=== PATIENT | female | born 1995 | race American Indian/Alaskan Native ===

== ENCOUNTER 2019-12-25 12:55 | Outpatient (CLI) | payer MEDICAID ==
[2019-12-25 13:27] VITALS: BP 113/71
[2019-12-25] MEDS ORDERED: LACTATED RINGERS 500 ML IV ONE (13:36)
[2019-12-25] MEDS ORDERED: LACTATED RINGERS 1,000 ML IV SCH (14:00)
[2019-12-25 14:15] LABS: Bacteria,Urine 1+ /HPF (Negative); Bilirubin,Urine NEG (Negative); Blood,Urine NEG (Negative); Color,Urine Yellow (Yellow); Protein,Urine <15 mg/dL mg/dL (Negative); Urobilinogen,Urine < 2.0 mg/dL (<2.0)
--- NOTE | 2019-12-25 17:00 | Ultrasound Report ---
LIMITED OB PELVIC ULTRASOUND INDICATION / CLINICAL INFORMATION: Vaginal spotting. Placenta scan only. COMPARISON: None available. FINDINGS: The heart rate is 131 bpm. The cervix measures 4.7 cm in length and the internal os is closed. The placenta is located anteriorly, is grade 2 and is free of the os. There is no evidence of abrupti on. Amniotic fluid volume is normal. presentation is cephalic. IMPRESSION: No evidence of placenta previa or placental abruption. Signer Name: Zeus Whitney MD Signed: 12/25/2019 4:55 PM Workstation Name: [id number]
== END 2019-12-25 17:13 | disposition home or self-care (01) ==
LOC: TRG 12:55
PROVIDERS: ATTEND Obstetrics & Gynecology
DX: O26.852 Spotting complicating pregnancy, second trimester (principal); O26.892 Other specified pregnancy related conditions, second trimester; R10.9 Unspecified abdominal pain; O47.02 False labor before 37 completed weeks of gestation, second trimester; Z3A.24 24 weeks gestation of pregnancy
CPT/HCPCS: 36415; 76815; 81001; 82731; J7120; 96360

== ENCOUNTER 2022-05-20 09:40 | Inpatient (IN) | payer MEDICAID ==
--- NOTE | 2022-05-20 09:15 | History and Physical Report ---
History of Present Illness Date of examination: 05/16/22 Date of admission: 05/20/2022 Chief complaint: here for c/s History of present illness: Pt here for repeat c/s. All risk, benefits and alternatives were d/w pt and questions were addressed and answered. Consents signed and placed on the chart. EDC Confirmation: 05/23/2022 Gestational Age: 39 4/7 weeks Past History : 5 Term Births: 1 Premature Births: 0 Living Children: 1 Para: 1 Mult. Births: 0 Prev : 1 Aborta: 3 Elect. Ab: 2 Spont. Ab: 1 Ectopics: 0 # 1 Delivery date: 2017 Delivery type: EAB # 2 Delivery date: 2019 Weeks Gestation: 41 Delivery type: Infant Sex: Male weight: 7lbs 4oz Comments: c/s d/t no dilatation, only 1cm. Denies PPH/PPD # 3 Delivery date: 10/2020 Delivery type: EAB # 4 Delivery date: 05/2021 Weeks Gestation: 9 Delivery type: SAB Comments: D&C Past Medical History: Reviewed and updated today: Negative Past Medical History Past Surgical History: Reviewed and updated today: General Comments - FH: mother Social History: Patient is single Smoking History: Patient has never smoked. Risk Factors: Smoked Tobacco Use: Never smoker Smokeless Tobacco Use: Never HIV High Risk Behavior: low risk No Dietary Counseling Reason: pn yes Alcohol Use: no Drug Use: no Past Medical History Anesthesia Complications: negative Anemia: negative Autoimmune Disorder: negative Bleeding Disorder: negative Blood Transfusions: negative Breast Disease: negative Diabetes: negative Heart Disease: negative Hypertension: negative Hepatitis/Liver Disease: negative Kidney Disease/UTI: negative Neurologic/Epilepsy/Migraines: negative Phlebitis/Varicosities: negative Psychiatric: negative Pulmonary Disease/Asthma: negative Thyroid Disease: negative Hospitalizations: negative 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 Infection History Hx of STD: none HIV Risk Eval: low risk Hepatitis B Risk Eval: low risk Personal hx. of genital herpes: no Partner hx. of genital herpes: no Rash, Viral, or Febrile illness since last LMP? no Genetic History Congenital Heart Defect: Mom: no Dad: no Jerrell Disease: Mom: no Dad: no Thalassemia Mom: no Dad: no Neural Tube Defect Mom: no Dad: no Down's Syndrome Mom: no Dad: no Cristóbal-Sachs Mom: no Dad: no Sickle Cell Disease/Trait Mom: no Dad: no Hemophilia Mom: no Dad: no Muscular Dystrophy Mom: no Dad: no Cystic Fibrosis Mom: no Dad: no [place] Chorea Mom: no Dad: no Mental Retardation Mom: no Dad: no Fragile X Mom: no Dad: no Other Genetic/Chromosomal Disorder Mom: no Dad: no Child w/other defect Mom: no Dad: no Enviromental Exposures Xray Exposure: no Medication, drug, or alcohol use since LMP: no Chemical/Other Exposure: no Exposure to Cat Liter: no Hx of Parvovirus (Fifth Disease): no Occupational Exposure to Children: none Active Medications (reviewed today): None Current Allergies (reviewed today): No known allergies Past History Past Medical History: other (see hpi) Past Surgical History: other (see hpi) Family/Genetic History: other (see hpi) Social history: other (see hpi) - Obstetrical History Expected Date of Delivery: 05/23/22 Actual Gestation: 39 Week(s) 4 Day(s) : 2 Para: 1 Number of Living Children: 1 Medications and Allergies Allergies Allergy/AdvReac Type Severity Reaction Status Date / Time shellfish derived Allergy Severe Hives Verified 04/19/20 17:30 Home Medications Medication Instructions Recorded Confirmed Last Taken Type Docusate Sodium [Colace] 100 mg PO BID PRN #60 capsule 04/22/20 Unknown Rx Ferrous Sulfate [Feosol 325 MG tab] 325 mg PO BID #60 tablet 04/22/20 Unknown Rx Ibuprofen [Motrin] 800 mg PO Q8HR PRN #40 tablet 04/22/20 Unknown Rx oxyCODONE /ACETAMINOPHEN [Percocet 2 tab PO Q6HR PRN #40 tablet 04/22/20 Unknown Rx 5/325] Review of Systems All systems: negative - Physical Exam Cardiovascular: Normal S1, Normal S2 Lungs: Positive: Clear to auscultation, Normal air movement Abdomen: Positive: normal appearance, soft Genitourinary (Female): Positive: other (deferred until EUA) Results Result Diagrams: 05/20/22 10:50 HBsAg Screen Negative Negative *1 RPR Non Reactive Non Reactive *2 Rubella Antibodies, IgG 1.59 index Immune >0.99 *3 Non-immune <0.90 Equivocal 0.90 - 0.99 Immune >0.99 ABO Grouping O *4 Rh Factor Positive *5 Please note: Prior records for this patient's ABO / Rh type are not available for additional verification. Antibody Screen Negative Negative *6 WBC [H] 11.3 x10E3/uL 3.4-10.8 *7 RBC 3.93 x10E6/uL 3.77-5.28 *8 Hemoglobin 12.4 g/dL 11.1-15.9 *9 Hematocrit 36.5 % 34.0-46.6 *10 MCV 93 fL 79-97 *11 MCH 31.6 pg 26.6-33.0 *12 MCHC 34.0 g/dL 31.5-35.7 *13 RDW 12.9 % 11.7-15.4 *14 Platelets 279 x10E3/uL 150-450 *15 Neutrophils 74 % Not Estab. *16 Lymphs 17 % Not Estab. *17 Monocytes 6 % Not Estab. *18 Eos 3 % Not Estab. *19 Basos 0 % Not Estab. *20 ! Immature Cells <No Reported Value> *21 Neutrophils (Absolute) [H] 8.3 x10E3/uL 1.4-7.0 *22 Lymphs (Absolute) 2.0 x10E3/uL 0.7-3.1 *23 Monocytes(Absolute) 0.6 x10E3/uL 0.1-0.9 *24 Eos (Absolute) 0.3 x10E3/uL 0.0-0.4 *25 Baso (Absolute) 0.0 x10E3/uL 0.0-0.2 *26 ! Immature Granulocytes 0 % Not Estab. *27 ! Immature Grans (Abs) 0.0 x10E3/uL 0.0-0.1 *28 ! NRBC <No Reported Value> *29 Hematology Comments: <No Reported Value> *30 Tests: (2) AFP Tetra ([id number]) ! Results Report *31 ! Test Results: *Screen Negative* *32 ! Gest. Age on Collection Date 20.6 WEEKS *33 ! Gestat. Age Based On LLUVIA *34 05/23/2022 ! M[age] LLUVIA [age] yr *35 ! Race Black *36 ! Weight 176 lbs *37 ! Insulin Dep Diabetes No *38 ! Multiple Gestation No *39 ! AFP Value 44.9 ng/mL *40 ! AFP MoM 0.73 *41 ! hCG Value 63143 mIU/mL *42 ! hCG MoM 0.47 *43 ! uE3 Value 2.81 ng/mL *44 ! uE3 MoM 1.14 *45 ! ANNA Value 110.52 pg/mL *46 ! ANNA MoM 0.61 *47 ! OSBR Risk 1 [place] [address] *48 ! DSR (Second Trimester) 1 [place] [address] *49 ! DSR (By Age) 1 IN 1003 *50 ! T18 Risk Not increased *51 ! T18 (By Age) 1:3907 *52 ! Interpretation NL42 *53 Interpretation: Screen Negative This result is screen negative for OSB, Down Syndrome and Trisomy 18. The AFP MoM and patient specific risks calculated are based on the gestational age and the clinical information provided. This test can identify up to 80% of open neural tube defects. Closed neural tube defects and some open defects may not be detected by this test. The combination of maternal age, AFP, hCG, uE3, and ANNA identifies 75-80% of Down Syndrome. The combination of maternal age, AFP, hCG and uE3 identifies 60% of Trisomy 18 pregnancies. The [employer] recommends amniocentesis be offered to women age 35 and older. Recalculations are not recommended when gestational dating by LMP and ultrasound are within 10 days. ! Comments: [facility] *54 Jazzy Gonsales, Ph.D., [facility] Director References: Available Upon Request. Multiples Of Median Cutoffs Abbreviation Definitions For AFP Elevations IDD- Insulin Dep Diabetes Guerrero 2.5 Black 2.8 OSBR- Open Spina Bifida IDD 2.0 Twins 4.5 Risk DSR Cutoff 1:270 DSR- Down Syndrome Risk T18 Cutoff 1:100 T18- Trisomy 18 Down Syndrome and Trisomy 18 screening are considered Investigational For further inquiries contact [facility] at [phone]. Tests: (3) HB Solu + Rflx [facility] ([id number]) Hemoglobin (Hgb) Solubility Negative Negative *55 Tests: (4) HIV Ab/p24 Ag with Reflex ([id number]) HIV Ab/p24 Ag Screen Non Reactive Non Reactive *56 HIV Negative HIV-1/HIV-2 antibodies and HIV-1 p24 antigen were NOT detected. There is no laboratory evidence of HIV infection. Tests: (5) HCV Antibody reflex to ZAKIYA ([id number]) HCV Ab <0.1 s/co ratio 0.0-0.9 *57 Tests: (6) Interpretation: ([id number]) ! Interpretation: SPRCS *58 Negative Not infected with HCV, unless recent infection is suspected or other evidence exists to indicate HCV infection. Effective February 18, 2022 HCV Antibody reflex to ZAKIYA will be made non-orderable. This will affect any Custom Profile that includes [id number] HCV Antibody reflex to ZAKIYA. [facility] offers order code [id number] HCV Antibody RFX to Quant PCR as an alternative. Tests: (7) Urine Culture, Routine ([id number]) Urine Culture, Routine Final report *59 Tests: (8) Result ([id number]) ! Result 1 No growth *60 Performed At: , [facility] ! Strep Gp B ZAKIYA Negative Negative *1 Centers for Disease Control and Prevention (CDC) and [place] [employer]nec[employer] (ACOG) guidelines for prevention of group B streptococcal (GBS) disease specify co-collection of a vaginal and rectal swab specimen to maximize sensitivity of GBS detection. Per the CDC and ACOG, swabbing both the lower vagina and rectum substantially increases the yield of detection compared with sampling the vagina alone. Penicillin G, ampicillin, or cefazolin are indicated for intrapartum prophylaxis of GBS colonization. Reflex susceptibility testing should be performed prior to use of clindamycin only on GBS isolates from penicillin-allergic women who are considered a high risk for anaphylaxis. Treatment with vancomycin without additional testing is warranted if resistance to clindamycin is noted. Assessment and Plan - Patient Problems (1) Previous delivery affecting Current Visit: No Status: Acute Plan to address problem: -admit and prepare for c/s
[2022-05-20] MEDS ORDERED: ceFAZolin/Water 2 GM/20 ML 2 GM/20 ML SYRINGE IV NR (10:00)
[2022-05-20] MEDS ORDERED: FAMOTIDINE 20 MG/2 ML INJ IV SCH (10:30)
[2022-05-20] MEDS ORDERED: OXYTOCIN DRIP 30 UNITS/500 ML BAG IV SCH (10:30)
[2022-05-20] MEDS ORDERED: METOCLOPRAMIDE 10 MG/2 ML INJ IV SCH (10:30)
[2022-05-20] MEDS ORDERED: BICITRA ORAL LIQD 30ML PO SCH (10:30)
[2022-05-20] MEDS ORDERED: AZITHROMYCIN/NS 500 MG/250 ML 500 MG/250 ML BAG IV SCH (11:00)
[2022-05-20] MEDS ORDERED: ePHEDrine SULFATE 50 MG/1 ML INJ ONE (11:18)
[2022-05-20] MEDS ORDERED: PHENYLEPHRINE/NS 1,000 MCG/10 ML SYRINGE (OR USE) IV ONE (11:18)
[2022-05-20] MEDS ORDERED: BUPIVACAINE/PF (0.25%) 2.5 MG/ML 30 ML VIAL INFILTRATI ONE (11:18)
[2022-05-20] MEDS ORDERED: ONDANSETRON 4 MG/2 ML INJ ONE (11:18)
[2022-05-20 11:20] LABS: Basophils % (Auto) 0.2 % (0.0-1.8); Eosinophils # (Auto) 0.2 K/mm3 (0.0-0.4); Eosinophils % (Auto) 1.5 % (0.0-4.3); Hematocrit 32.5 % (30.3-42.9); Hemoglobin 11.9 gm/dl (10.1-14.3); Lymphocytes % (Auto) 18.5 % (13.4-35.0); Mean Corpuscular HGB Conc 37 % (30-34); Mean Corpuscular Volume 91 fl (79-97); Monocytes # (Auto) 0.8 K/mm3 (0.0-0.8); Monocytes % (Auto) 7.3 % (0.0-7.3); Platelet Count 207 K/mm3 (140-440); Red Blood Count 3.57 M/mm3 (3.65-5.03); Red Cell Distribution Width 13.2 % (13.2-15.2)
[2022-05-20] MEDS: LACTATED RINGERS 1,000 ML IV SCH ×2 (12:01→12:03)
[2022-05-20] MEDS ORDERED: OXYTOCIN 10 UNIT/1 ML INJ ONE (12:55)
--- NOTE | 2022-05-20 13:27 | Operative Report ---
Operative Report Operative Report: Date of procedure: 05/20/2022 Pre-operative diagnosis: 39-4/7 weeks gestation Previous section Post-operative diagnosis: Same Procedure name(s): Repeat low transverse section via Pfannenstiel skin incision Surgeon: Dr. Lyons Paraprofessional Education Assistant: SARAH Anesthesia: Spinal EBL:400ml QBL: 450 mL Urine output: 200 mL of clear urine out at end of the procedure Fluids: 1500 mL Findings: Liveborn male weight 8 pounds 4 ounces Apgars of 9 and 9 at 1 and 5 minutes Body cord x1 easily reduced Adhesions at the level of the skin Grossly normal fallopian tubes and ovaries bilaterally Indications: Patient presents for elective repeat section. All risk benefits and alternatives were discussed with the patient. Consents were signed and placed on the chart. Procedure: Patient was taking to the operating room. Patient was then prepped and draped in sterile fashion after anesthesia was found to be adequate. A low transverse skin incision was made with the scalpel through previous incisional scar and carried down to the underlying layer of fascia with the Bovie. The fascia was then incised in the midline and this incision was extended bilaterally with the Bovie. The superior aspect of the fascia was grasped with Kimmy clamps tented upward and dissected off of the anterior rectus muscles with the scalpel. In similar fashion the inferior aspect of the fascia was grasped with Kimmy clamps tented upward and dissected off of the anterior rectus muscles. The rectus muscles were then bluntly divided in the midline. The peritoneum was identified and entered into sharply. The Cordell retractor was placed. A lower transverse uterine incision was made with the scalpel and extended bilaterally with the bandage scissors. Artificial rupture of membranes was performed yielding [clear amniotic fluid]. The infant's head was then delivered atraumatically. The anterior shoulder and rest of delivered without difficulty. Body cord x1 easily reduced. The umbilical cord was clamped x2. The cord was cut. The was then placed in sterile bassinet. [The cord blood was collected]. The placenta was manually extracted in its entirety. The uterus was exteriorized and cleared of all clots and debris. The uterine incision was closed using 0 Vicryl in a running locking fashion. [ A second imbricating layer of the same suture was then created.] The posterior cul-de-sac was copiously irrigated. The uterus was returned to the abdomen. The gutters were also irrigated. The anterior rectus muscles were reapproximated using 3-0 Vicryl. The anterior rectus fascia was reapproximated using 0 Vicryl in a running fashion. The subcuticular fat was reapproximated using 2-0 Vicryl in a running fashion. The skin was reapproximated with 4-0 Monocryl in a subcuticular stitch. The patient tolerated the procedure well. Sponge lap and needle counts were all correct x3. Patient was taken to the recovery room awake and in stable condition.
[2022-05-20] MEDS ORDERED: KETOROLAC 30 MG/1 ML INJ IV PRN (13:30)
[2022-05-20] MEDS ORDERED: SIMETHICONE 80 MG CHEW TAB PO PRN (13:30)
[2022-05-20] MEDS ORDERED: NALOXONE 0.4 MG/1 ML INJ IV PRN ×2 (13:30→13:52)
[2022-05-20] MEDS ORDERED: IBUPROFEN 600 MG TAB PO PRN (13:30)
[2022-05-20] MEDS ORDERED: LANOLIN/ZINC/DIMETHICONE (LANSINOH) 7 GM TP PRN (13:30)
[2022-05-20] MEDS ORDERED: ACETAMINOPHEN 650 MG RECT SUPP PR PRN (13:30)
[2022-05-20] MEDS ORDERED: MORPHINE 4 MG/1 ML INJ IV PRN ×2 (13:30→13:52)
[2022-05-20] MEDS ORDERED: WITCH HAZEL/ GLYCERIN PAD TP PRN (13:30)
[2022-05-20] MEDS ORDERED: HYDROmorphone 0.5 MG/0.5 ML INJ IV PRN (13:52)
[2022-05-20] MEDS ORDERED: ONDANSETRON 4 MG/2 ML INJ IV PRN (13:52)
[2022-05-20] MEDS ORDERED: PROMETHAZINE 25 MG TAB PO PRN (13:52)
[2022-05-20] MEDS ORDERED: PROMETHAZINE 25 MG RECT SUPP PR PRN (13:52)
[2022-05-20] MEDS ORDERED: HYDROmorphone 1 MG/1 ML INJ IV PRN ×2 (13:52)
--- NOTE | 2022-05-20 13:54 | Anesthesia Consultation ---
Anesthesia Consult and Med Hx Date of service: 05/20/22 - Airway Anesthetic Teeth Evaluation: Good ROM Head & Neck: Adequate Mental/Hyoid Distance: Adequate Mallampati Class: Class II Intubation Access Assessment: Probably Good - Pulmonary Exam CTA: Yes - Cardiac Exam Cardiac Exam: RRR - Pre-Operative Health Status ASA Pre-Surgery Classification: ASA2 Proposed Anesthetic Plan: Spinal Nerve Block: Stanford Tap - Pulmonary Hx Smoking: No Hx Asthma: No Hx Respiratory Symptoms: No SOB: No COPD: No Home Oxygen Therapy: No Hx Pneumonia: No Hx Sleep Apnea: No - Cardiovascular System Hx Hypertension: No Hx Coronary Artery Disease: No Hx Heart Attack/AMI: No Hx Angina: No Hx Percutaneous Transluminal Coronary Angioplasty (PTCA): No Hx Cardia Arrhythmia: No Hx Pacemaker: No Hx Internal Defibrillator: No Hx Valvular Heart Disease: No Hx Heart Murmur: No Hx Peripheral Vascular Disease: No - Central Nervous System Hx Neuromuscular Disorder: No Hx Seizures: No CVA: No Hx Back Pain: No Hx Psychiatric Problems: No - Gastrointestinal Hx Ulcer: No Hx Gastroesophageal Reflux Disease: No - Endocrine Hx Renal Disease: No Hx End Stage Renal Disease: No Hx Cirrhosis: No Hx Liver Disease: No Hx Insulin Dependent Diabetes: No Hx Non-Insulin Dependent Diabetes: No Hx Thyroid Disease: No Hx Hypothyroidism: No Hx Hyperthyroidism: No - Hematic Hx Anemia: No Hx Sickle Cell Disease: No - Other Systems Hx Alcohol Use: No Hx Substance Use: No Hx Cancer: No Hx Obesity: No
--- NOTE | 2022-05-20 13:54 | Anesthesia Day of Surgery ---
Anesthesia Day of Surgery - Day of Surgery Patient Examined: Yes Patient H&P Reviewed: Yes Patient is NPO: Yes Beta Blockers: No Cardiac Clearance: No Pulmonary Clearance: No Simon's Test: N/A
--- NOTE | 2022-05-20 13:55 | Progress Note ---
Spinal Anesthesia Block - Spinal Anesthesia Block Start Time: 12:15 Stop Time: 12:24 Performed by:: LAW ANDREWS Procedure: The patient was placed in a sitting position on the OR table and monitors applied. A timeout was performed immediately prior to the start of the procedure. The patient was Prepped and draped in a sterile fashion and the skin was localized with 3 mL 1% lidocaine at L[4]-L[5] interspace. An introducer was placed into the back between L4-L5 and a 25g spinal needle was advanced into the intrathecal space until clear, free flowing CSF was observed. 1.8cc of 0.75% hyperbaric bupivacaine + 0.5mcg Precedex was injected into the intrathecal space and the spinal needle was removed. The patient tolerated the procedure well and there were no immediate complications noted.
--- NOTE | 2022-05-20 13:55 | Progress Note ---
Regional Anesthesia Block - Regional Anesthesia Block Start Time: 13:35 Stop Time: 13:41 Performed By:: LAW ANDREWS Procedure: During the pre-op interview the patient agreed to and signed a consent for a TAP block for post surgical pain management. After her C/S was completed a time out was performed prior to the start of the procedure. The Trans Abdominal Plane was identified bilaterally via ultrasound. The skin was prepped bilaterally with chlorhexidine and a 22g stimuplex needle was advanced to the area between the internal oblique muscle and the trans abdominal plane. Marcaine 0.25% 30mlwas injected under ultrasound guidance on the left and right side. Negative aspiration every 5mL, There was no change in the patients heart rate or rhythm and the patient tolerated the procedure well. No apparent complications were observed.
[2022-05-20] MEDS ORDERED: ceFAZolin/NS 1 GM/50 ML 1 GM/50 ML BAG IV SCH (14:00)
[2022-05-20] MEDS ORDERED: fentaNYL-BUPIV 2 MCG/ML-0.125% 200 MCG/100 ML BAG EPIDURAL SCH (14:00)
[2022-05-20] MEDS ORDERED: LACTATED RINGERS 1,000 ML IV SCH (18:00)
[2022-05-21] MEDS: HYDROcodone/ACETAMINOPHEN 5-325 MG TAB PO PRN ×2 (00:09→05:36)
[2022-05-21] MEDS ORDERED: ceFAZolin/NS 1 GM/50 ML 1 GM/50 ML BAG IV SCH (02:00)
[2022-05-21 02:53] LABS: Hematocrit 30.6 % (30.3-42.9); Hemoglobin 10.9 gm/dl (10.1-14.3)
--- NOTE | 2022-05-21 08:33 | Progress Note ---
Assessment and Plan patient doing well, no complaints. H&H 10.9/30.6. VSSAF, lochia scant, fundus firm. + Flatus - Patient Problems (1) delivery delivered Current Visit: Yes Status: Acute Plan to address problem: Continue postop pathway Anticipate c/s home tomorrow Subjective - Subjective Date of service: 05/21/22 Principal diagnosis: postop day #1 s/p repeat c/s Patient reports: appetite normal, voiding normally, pain well controlled, ambulating normally, no dizzy ambulation, no nauseated : doing well Objective - Vital Signs Latest vital signs: Vital Signs Temp Pulse Resp BP BP Pulse Ox Pulse Ox 05/21/22 05:36 20 05/21/22 05:06 97.4 F L 63 18 102/64 97 05/21/22 01:42 97.9 F 65 18 96/56 96 05/21/22 00:09 20 05/20/22 21:55 97.7 F 61 18 101/63 96 05/20/22 19:50 99 05/20/22 15:33 103 H 98 05/20/22 15:28 105 H 97 05/20/22 15:26 99 H 114/68 05/20/22 15:23 100 H 98 05/20/22 15:21 97.8 F 63 16 111/79 100 05/20/22 15:20 100 05/20/22 15:18 86 99 05/20/22 15:13 107 H 99 05/20/22 15:12 98 H 117/68 05/20/22 15:08 96 H 98 05/20/22 15:03 103 H 98 05/20/22 15:00 97.4 F L 71 17 108/71 97 05/20/22 14:58 108 H 99 05/20/22 14:56 102 H 121/64 05/20/22 14:53 100 H 99 05/20/22 14:48 98 H 100 05/20/22 14:45 65 17 113/75 98 05/20/22 14:30 97.1 F L 74 16 115/72 99 05/20/22 14:15 64 16 111/74 99 05/20/22 14:00 96.9 F L 64 14 107/69 98 05/20/22 13:55 64 14 109/70 98 05/20/22 13:50 64 16 111/71 98 05/20/22 13:45 72 114/73 97 05/20/22 13:40 68 15 107/67 95 05/20/22 13:35 69 15 108/67 95 05/20/22 13:30 96.0 F L 73 11 L 105/65 98 05/20/22 13:29 12 108/74 94 05/20/22 12:06 81 96 05/20/22 12:03 82 94 05/20/22 12:01 80 92 05/20/22 11:56 82 93 05/20/22 11:51 92 H 94 05/20/22 11:50 96 H 93 05/20/22 11:46 80 96 05/20/22 11:44 85 93 05/20/22 11:41 93 H 95 05/20/22 11:36 82 95 05/20/22 11:31 78 94 05/20/22 11:07 77 97 05/20/22 11:02 77 97 05/20/22 10:57 74 96 05/20/22 10:52 78 97 05/20/22 10:47 78 94 05/20/22 10:42 86 92 05/20/22 10:37 86 93 05/20/22 10:32 87 94 05/20/22 10:31 101 H 94 05/20/22 10:27 95 H 93 05/20/22 10:22 77 94 05/20/22 10:17 87 94 05/20/22 10:14 98.8 F 86 20 106/66 95 05/20/22 10:13 96 H 94 05/20/22 10:12 87 106/66 96 Intake and Output 05/20/22 05/21/22 05/21/22 23:59 07:59 15:59 Intake Total 560 300 Output Total 1000 Balance 560 -700 Intake: Oral 440 120 Intake, Free Water 120 180 Output: Urine 1000 Indwelling Catheter 700 Void 300 Other: Total, Intake Amount 120 120 Total, Output Amount 300 # Voids Indwelling Catheter 300 Void 0 - Exam Breasts: Present: normal, Cardiovascular: Present: Regular rate Lungs: Present: Clear to auscultation, Normal air movement Abdomen: Present: normal appearance, soft Vulva: both: normal Uterus: Present: normal, firm, fundal height below umbilicus Extremities: Present: normal Deep Tendon Reflex Grade: Normal +2 Incision: Present: normal, dry, dressed - Labs Labs: Abnormal lab results 05/20/22 Range/Units 10:50 RBC 3.57 L (3.65-5.03) M/mm3 MCH 33 H (28-32) pg MCHC 37 H (30-34) % Seg Neutrophils % 72.5 H (40.0-70.0) %
[2022-05-21] MEDS: FERROUS SULFATE 325 MG TAB PO SCH (10:47)
[2022-05-21] MEDS: PRENATAL VIT27-FE FUMARATE-FOLIC ACID VIT TAB PO SCH (10:48)
[2022-05-21] MEDS: IBUPROFEN 800 MG TAB PO PRN ×2 (10:48→17:47)
[2022-05-21] MEDS ORDERED: TETANUS,DIPH,PERTUSS(ACELL) VACCINE 0.5 ML SYRINGE IM ONE (13:31)
[2022-05-22] MEDS: HYDROcodone/ACETAMINOPHEN 5-325 MG TAB PO PRN (00:03)
[2022-05-22] MEDS: IBUPROFEN 800 MG TAB PO PRN (05:45)
[2022-05-22] MEDS ORDERED: TETANUS,DIPH,PERTUSS(ACELL) VACCINE 0.5 ML SYRINGE IM ONE (06:00)
--- NOTE | 2022-05-22 07:11 | Post Anesthesia Evaluation ---
- Post Anesthesia Evaluation Patient Participated: Yes Airway Patent: Yes Stable Respiratory Function: Yes Nausea/Vomiting: No Temp > 96.8F: Yes Pain Manageable: Yes Adequeate Hydration: Yes Anesthesia Complications: No Block Receding Appropriately: Yes Patient on Ventilator: No
[2022-05-22] MEDS: PRENATAL VIT27-FE FUMARATE-FOLIC ACID VIT TAB PO SCH (10:13)
[2022-05-22] MEDS: FERROUS SULFATE 325 MG TAB PO SCH (10:13)
--- NOTE | 2022-05-22 13:17 | Discharge Summary ---
Providers - Providers Date of Admission: 05/20/22 09:40 Date of discharge: 05/22/22 Attending physician: CAITLIN MARTI Primary care physician: CAITLIN MARTI Hospitalization Reason for admission: active labor Delivery: Procedure: section Incision: normal, dry, other (steri strips) Other procedures: none complications: none Discharge diagnosis: IUP at term delivered [place] baby: male Hospital course: S: Pt doing well. Voiding, ambulating, and passing flatus. BC: Undecided. O: VSS. Adequate I&O's, H/H 10.9/30.6. Minimal bleeding noted. Incision open to air, steri strips intact, no s/sx of infection noted. No drainage noted. A: 26 y.o. s/p rpt . In good condition . P: Discharge home with instructions. Pt is schedule for an incision check in office in 1 week. Pt to schedule son's circumcision appointment in office in 1 week. Condition at discharge: Good Disposition: 01 HOME / SELF CARE / HOMELESS Plan - Discharge Medications Prescriptions: Docusate Sodium [Colace] 100 mg PO BID PRN #60 capsule PRN Reason: Constipation Lidocain2.5%/Prilocai2.5% [Emla] 2 gm TP ONCE #1 tube Ibuprofen [Motrin 800 MG tab] 800 mg PO Q8HR PRN #30 tablet PRN Reason: Pain, Moderate (4-6) oxyCODONE /ACETAMINOPHEN [Percocet 5/325] 1 tab PO Q4HR #30 tab - Provider Discharge Summary Activity: routine, no sex for 6 weeks, no heavy lifting 4 weeks, no strenuous exercise Diet: routine Instructions: routine Additional instructions: [] Smoking cessation referral if applicable(refer to patient education folder for contact #) [] Refer to [facility]'s [facility] Booklet Call your doctor immediately for: * Fever > 100.5 * Heavy vaginal bleeding ( >1 pad per hour) * Severe persistent headache * Shortness of breath * Reddened, hot, painful area to leg or breast * Drainage or odor from incision. * Keep incision clean and dry at all times and follow doctor's instructions regarding bathing/showering - Follow up plan Follow up: CAITLIN MARTI MD [Primary Care Provider] - 7 Days (Congratulations on your baby boy! Thanks for letting us care for you. Please schedule your son's circumcision appt in 1 week. Please schedule your Incision check in 1 week. You have been given emla cream precscription for your son's circumcision, DO NOT use it at home, bring to circumcision appt. Please call the office at [phone] if you any concerns or questions after discharge. )
[2022-05-22 17:11] VITALS: BP 110/67
== END 2022-05-22 16:10 | disposition home or self-care (01) | DRG 766 ==
LOC: APU 09:40 → OB 15:35
PROVIDERS: ADMIT Obstetrics & Gynecology; ATTEND Obstetrics & Gynecology
PROC: 10D00Z1 Extraction of Products of Conception, Low, Open Approach (ICD-10-PCS; principal; 2022-05-20)
PROC: 3E0T3BZ Introduction of Anesthetic Agent into Peripheral Nerves and Plexi, Percutaneous Approach (ICD-10-PCS; 2022-05-20)
PROC: 3E0234Z Introduction of Serum, Toxoid and Vaccine into Muscle, Percutaneous Approach (ICD-10-PCS; 2022-05-22)
DX: O34.211 Maternal care for low transverse scar from previous cesarean delivery (principal); Z3A.39 39 weeks gestation of pregnancy; Z20.822 Contact with and (suspected) exposure to COVID-19; Z23 Encounter for immunization; Z37.0 Single live birth; Z91.013 Allergy to seafood
CPT/HCPCS: 36415; 85014; 85018; 85025; 86850; 86900; 86901; 90471; 90715; G0378; J3490; J0690; J1885; J2370; J2405; J2590; J2765; J7120; U0003